=== PATIENT | male | born 1995 | race Caucasian/White ===

== ENCOUNTER 2018-05-16 10:55 | Emergency (ER) | payer OTHER ==
[~2018-05-16] VITALS: Ht 172.7 cm; Wt 56.7 kg
[~2018-05-16 10:55] MED LIST: IBUPROFEN 600600 M1 PO; ZOFRAN ODT4 MG PO
[2018-05-16 14:05] VITALS: BP 113/61
== END 2018-05-16 14:05 | disposition home or self-care (01) ==
LOC: ER 10:55
DX: J06.9 Acute upper respiratory infection, unspecified (principal); R59.0 Localized enlarged lymph nodes; F17.210 Nicotine dependence, cigarettes, uncomplicated